=== PATIENT | female | born 1970 | race Caucasian/White ===

== ENCOUNTER 2025-02-03 07:44 | Outpatient (AMB) | payer BC, SELFPAY ==
--- OUTSIDE RECORDS SUMMARY | 2025-02-03 07:47 | XMS_ITS | Patient Health Record ---
Author Organization [facility] Address [address] [place] [address] Care Team Providers Care Ship Yard Electrical Person Name Role Phone HOA PITT Unavailable [phone] Allergies Allergen (clinical drug ingredient) Drug/Non Drug Allergy documented on EMR Reaction Allergy Type Onset Date Status Wellbutrin rash Drug Allergy Active Reason For Referral No Information Medications Medication SIG (Take, Route, Frequency, Duration) Notes Start Date End Date Status Levothyroxine Sodium 112 MCG Tablet 1 tablet in the morning on an empty stomach Orally Once a day Active Calcium 500 MG Tablet 1 tablet with meal s Orally Twice a day Active Biotin 92997 MCG Tablet 1 tablet Orally Once a day Active [place] 3 Active Omeprazole 20 MG Capsule Delayed Release 1 tablet 30 minutes before morning meal Orally Once a day Active Vitamin D 50 MCG (2000 UT) Tablet 1 tablet Orally Once a day Active Magnesium 400 MG Tablet as directed Orally Active Social History Tobacco Use: Social History Observation Description Date Details (start date - stop date) Former Smoker NA - NA Social History Drugs/Alcohol: Social Info Question Answer Notes Alcohol Screen (Audit-C) Did you have a drink containing alcohol in the past year? Yes How often did you have a drink containing alcohol in the past year? 2 to 4 times a month (2 points) Points 2 Interpretation Negative Tobacco Use: Social Info Question Answer Notes Tobacco Use/Smoking Are you a former smoker How long has it been since you last smoked? > 10 years Additional Details Category Social Info Options Details Drugs/Alcohol: Do you smoke marijuana? De nies Do you drink alcohol? 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 Problems Problem Type SNOMED Code ICD Code Onset Dates Problem Status W/U Status Risk Notes Problem Obesity (970706406) Other obesit y (E66.8) Active confirmed Problem Gastroesophageal reflux disease without esophagitis (030527296) Gastroesophageal reflux disease without esophagitis (K21.9) Active confirmed Problem Hypothyroidism (00839146) Hypothyroidism (acquired) (E03.9) Active confirmed Problem Body mass index 40+ - severely obese (884333235) BMI 45.0-49.9, adult (Z68.42) Active confirmed Problem Iron deficiency anemia secondary to inadequate dietary iron intake (417611192) Iron deficiency anemia secondary to inadequate dietary iron intake (D50.8) Active confirmed Plan Of Treatment No Information Insurance Providers Payer Name Payer Address Payer Phone Subscriber Number Group Number Insured Name Patient Relationship to Insured Coverage Start Date Coverage End Date [facility] [address] [place] [address] [id number] MEENAKSHI KENDRICK Self - patient is the insured 2 Medical (General) History Medical History History ICD Code high cholesterol thyroid disease Arthritis anemia weight gain/loss Surgical History Surgery Date(Month/Year) gastric bypass gallbladder removal herniated disc repair lab band adrenal gland removed
--- OUTSIDE RECORDS SUMMARY | 2025-02-03 07:47 | XMS_ITS ---
Author Name [facility] Organization Unknown Encounters Encounter Type Encounter Reason Primary Diagnosis Location Date Ambulatory no current diagnosis no current diagnosis [facility] 01/25/2025 Ambulatory [facility] 10/12/2024 Care Team Organization Name Specialty Phone Email Start Date End Da te [facility] 01/25/2025 [facility] 01/25/2025
--- OUTSIDE RECORDS SUMMARY | 2025-02-03 07:47 | XMS_ITS | Clinical Summary ---
Author Organization [facility] Address [address] [place] [address] Care Team Providers Care Crm Marketing Analyst Name Role Phone Marva Farrell MD Primary Care Prov ider Allergies Active Allergy Reactions Criticality Noted Date Comments Bupropion Rash Medium 01/08/2022 Medications Medication Sig Dispensed Refills Start Date End Date Status levothyroxine (SYNTHROID) tablet 112 mcg Take 1 tablet (112 mcg total) by mouth every morning on an empty stomach. 0 Active omeprazole (PriLOSEC) 20 MG capsule Take 1 capsule (20 mg total) by mouth daily. 0 Active Cholecalciferol (Vitamin D-3) 125 MCG (5000 UT) TABS Take by mouth daily. 0 Active Calcium Carbonate Antacid 1000 MG tablet Chew 1,000 mg by mouth 3 (three) times a day. 0 Active Biotin 65607 MCG TABS Take by mouth daily. 0 Active magnesium oxide 400 (240 Mg) MG TABS tablet Take 1 tablet (400 mg total) by mouth 2 (two) times a day. 0 Active Multiple Vitamin (MULTIVITAMIN ADULT PO) Take by mouth daily. 0 Active Tirzepatide (MOUNJARO SC) Inject under the skin. 0 Active Cyanocobalamin (Vitamin B 12) 500 MCG TABS Take 1,000 mg by mouth daily. 0 Active rivaroxaban (XARELTO) 10 MG tablet Take 1 tablet (10 mg total) by mouth daily. 45 tablet 0 12/08/2023 Active Active Problems Problem Noted Date Diagnosed Date Iron deficiency anemia 01/08/2022 Social History Tobacco Use Types Packs/Day Years Used Date Smoking Tobacco: Former Cigarettes 1 22 Q uit: 2010 Smokeless Tobacco: Never Tobacco Cessation:Counseling Given: Not Answered Alcohol Use Standard Drinks/Week Comments Yes 0 (1 standard drink = 0.6 oz pur e alcohol) 4-5 per year Sex and Gender Information Value Date Recorded Sex Assigned at Female 01/23/2022 10:18 AM EST Gender Identity Not on file Sexual Orientation Not on file Job Start Date Occupation Industry Not on file Not on file Not on file Last Filed Vital Signs Vital Sign Reading Time Taken Comments Blood Pressure 126/73 11/20/2023 3:13 PM EDT Pulse 78 11/20/2023 3:13 PM EDT Temperature 36.4 C (97.5 F) 11/20/2023 3:13 PM EDT Respiratory Rate 20 11/10/2023 8:11 AM EDT Oxygen Saturation 100% 11/20/2023 3:13 PM EDT Inhaled Oxygen Concentration - - Weight 131.6 kg (290 lb 3.2 oz) 10/10/2023 2:37 PM EDT Height 170.2 cm (5' 7 ) 10/10/2023 2:37 PM EDT Body Mass Index 45.45 10/10/2023 2:37 PM EDT Plan of Treatment Health Maintenance Due Date Last Done Comments Hepatitis C Screening 1971 Depression Screening 1983 BMI Counseling 12/19/1989 Preventative Health Evaluation 12/19/1989 Cervical Cancer Screening (Pap Smear) 12/19/1992 Colon Cancer Screening (Colonoscopy) 12/19/2016 DTap / Tdap / Td (2 - Td or Tdap) 07/01/2021 07/02/2011 Breast Cancer Screening (Mammogram) 12/19/2021 Shingrix-Zoster Vaccine (1 of 2) 12/19/2021 COVID-19 Vaccine ( season) 2024 12/13/2021, 03/22/2021, 04/16/2020, Additional history exists Influenza Vaccine (#1) 2024 3, 05/03/2019, 05/03/2019, Additional history exists Hepatitis B Vaccines Completed 03/04/2014, 10/15/2013, 09/15/2013 Pneumococcal Vaccine Aged Out No long er eligible based on patient's age to complete this topic RSV Ped < 20 months Aged Out No longe r eligible based on patient's age to complete this topic Care Teams Crm Marketing Analyst Relationship Specialty Start Date End Date Marva Farrell MD PCP - General Internal Medicine 10/22/21
[2025-02-03 07:49] VITALS: BMI 43.8
--- NOTE | 2025-02-03 07:49 | A.PHYSOV ---
Vital Signs 02/03/25 07:49 Height 5 ft 7 in Weight 280 lb BMI 43.8 Intake Visit Reasons: FOLLOW UP AFTER VIDAL SURGERY 11/25/24 Allergies bupropion (From WELLBUTRIN) Allergy (Severe, Verified 02/03/25 07:47) HIVES NSAIDS (Non-Steroidal Anti-Inflamma Allergy (Unknown, Verified 02/03/25 07:47) Unknown Pt states no known allergy to Allergy (Unknown, Uncoded 02/03/25 07:47) Unknown Wellbutrin Allergy (Unknown, Uncoded 02/03/25 07:47) Unknown HPI Comments Details: History of Present Illness The patient is a 54-year-old individual presenting with lower back pain and lumbar radiculitis. The patient underwent a right L3-L4 microdiscectomy on November 25, 2024, performed by Dr. Vidal, which initially reduced numbness in the right thigh. Physical therapy has been ongoing, helping to reduce the frequency and intensity of right-sided back pain, although exacerbations occur with weather changes. I reviewed records from neurosurgical office. I reviewed her primary care notes. I also reviewed most recent lumbosacral spine MRI dated 10/22/2024 which was done before her surgery. The patient has a history of pulmonary embolism and is currently on Xarelto, having switched from Eliquis for convenience of dosing. The patient has expressed interest in weight loss and is working with a menopause specialist in [place] for hormone management. The patient reports knee pain, particularly in the left knee, which has been previously managed with injections yielding good results. There is a family history of psoriatic arthritis, and the patient has noted joint changes and nail issues, raising concerns about potential psoriatic arthritis. Pain Description - Onset: Exacerbation of lower back pain with weather changes - Location: Bilateral lower back pain with radiation to both buttocks with going from sitting to standing position - Exacerbating factors: Weather changes - Relieving factors: Physical therapy Results - Imaging: Lumbar sacral spine MRI on October 22, 2024, showed right-sided disc extrusion at L3-L4 with impingement of the right L4 nerve root. FORMERLY [facility], [facility] Medical History (Updated 02/03/25 @ 08:15 by Hernán Heredia DO) Hip pain, bilateral Left knee DJD Surgical History S/P gastric sleeve procedure History of back surgery History of cholecystectomy Social History Household Members: Spouse Alcohol intake: current Alcohol intake frequency: holidays/special occasions only Current occupational status: employed Current occupation: fulltime Review of Systems Narrative Review of Systems - Musculoskeletal: Reports lower back pain, knee pain, and joint changes. - Neurological: Reports numbness in the right thigh, which has improved post-surgery. - Dermatological: Reports nail issues, raising concerns about potential psoriatic arthritis. Denies change in bowel bladder habits, denies fever or chills, denies uncontrolled depression or suicidal ideation. Physical Exam Exam Exam: Physical Exam Patient appears to be in no acute distress, appropriately conversant oriented. Gait was waddling without antalgia. Pain with palpation over left knee medial joint line. No effusion, no ligamentous instability. No severe pain with internal rotation of either hip. Dural tension signs were negative. Mild weakness of the right hip flexion. Bilateral patellar and Achilles reflexes were uniformly diminished, but symmetric. Lumbar extension was restricted. Tenderness with palpation or sacroiliac sulci, SI provocative maneuvers were negative. Vital Signs: BMI result Body Mass Index 43.8 Office Procedures AMB Knee Injection AMB Knee Injection Procedure Details: With patient in sitting position medial aspect of the left knee was prepped with Betadine. 1.5 inch 25 gauge hypodermic needle was introduced percutaneously and advanced into the joint. After negative aspiration for blood to the volume of 4 cc containing 40 mg of triamcinolone and 2% lidocaine was injected without resistance. Patient tolerated procedure very well without complications with excellent anesthetic response. Knee Injection - : Left All charges added?: Procedure code (CPT) selection complete Office Meds Kenalog 40 mg/mL suspension for injection Performing Provider: Hernán Heredia DO Performing Location: [facility] Administered by: Hernán Heredia DO on 02/03/25 09:00 Dose Route Admin Location Dispensed Lot Number Expiration Date NDC Manager Pest 40 mg intra-articular 1 mL [id number] [employer] Total Dispensed Waste 1 mL 0 % lidocaine (PF) 20 mg/mL (2 %) injection solution Performing Provider: Hernán Heredia DO Performing Location[facility] Administered by: Hernán Heredia DO on 02/03/25 09:00 Dose Route Admin Location Dispensed Lot Number Expiration Date NDC Manager Pest 40 mg intra-articular 2 mL [id number] Total Dispensed Waste 2 mL 0 % Assessment & Plan Assessment & Plan (1) Left knee DJD: Code(s): M17.12 - Unilateral primary osteoarthritis, left knee Category: Medical (2) Hip pain, bilateral: Code(s): M25.551 - Pain in right hip; M25.552 - Pain in left hip Category: Medical Plan Pain Management - Affect: The patient reports difficulty transitioning from sitting to standing, impacting daily activities. - Analgesia: The patient is on Xarelto for pulmonary embolism history, and has used knee injections for pain relief. - Adverse Effects: No specific adverse effects from pain management were discussed. - Activities of Daily Living: The patient experiences difficulty with activities such as getting into a car due to weakness and joint pain. - Aberrant Drug Related Behaviors: No aberrant behaviors reported. Plan Patient was informed and verbally consented to the use of an ambient scribe for clinic note documentation during this visit. 1. Lower Back Pain The patient will continue with physical therapy to manage lower back pain, which has shown improvement in pain frequency and intensity. Weather changes exacerbate the pain, and the patient is advised to monitor these triggers. 2. Lumbar Radiculitis The patient underwent a right L3-L4 microdiscectomy, which initially reduced numbness in the right thigh. Continued physical therapy is recommended to maintain improvements. 3. History Of Pulmonary Embolism The patient is on Xarelto for anticoagulation management, having switched from Eliquis for dosing convenience. 4. Menopausal Symptoms The patient is working with a menopause specialist for hormone management, focusing on symptom relief. 5. Knee Pain The patient has experienced relief from knee injections in the past and is considering further imaging to assess current status. 6. Patient is concerned about bilateral hip pain and relation of such to possibility of psoriatic arthritis Discussion Notes I discussed with the patient the continuation of physical therapy for managing lower back pain and lumbar radiculitis, emphasizing the importance of monitoring weather-related exacerbations. We reviewed the patient's anticoagulation therapy with Xarelto for pulmonary embolism history and the transition from Eliquis for convenience. The patient was advised to consider further imaging for knee pain and to follow up with a menopause specialist for hormone management. Bilateral hip x-rays will be requested as well. Proceed with intra-articular injection of the left knee. Risks and benefits of the procedure were discussed with the patient. Potential alternative measures were also discussed. Patient understands that the procedure is completely elective. Potential side effects associated with injectable medications were discussed. All questions were answered to the patient's satisfaction. Patient Instructions - Continue physical therapy as prescribed. - Monitor for weather-related pain exacerbations and adjust activities accordingly. - Follow up with menopause specialist for ongoing hormone management. - Schedule knee imaging as discussed and follow up with results. Orders: Orders XR hip BI w PEL1V Today M25.551 - Pain in right hip, M25.552 - Pain in left hip AMB Knee Injection Today M17.12 - Unilateral primary osteoarthritis, left knee XR knee LT 4V Today M17.12 - Unilateral primary osteoarthritis, left knee Coding Level of Care Code Est Pt Level 4 (08271) Complex EM visit Add On G2211 Diagnoses Left knee DJD M17.12 Hip pain, bilateral M25.551; M25.552 CPT Codes AMB Knee Injection - Hip/Bursa Injection - : Left ([id number])
== END 2025-02-03 08:14 | disposition home or self-care (01) ==
PROVIDERS: PCP Internal Medicine; Visit Provider Physical Medicine & Rehabilitation
DX: M17.12 Unilateral primary osteoarthritis, left knee (principal); M25.551 Pain in right hip; M25.552 Pain in left hip
CPT/HCPCS: 20610; 99214

== ENCOUNTER → 2025-02-03 07:44 | Outpatient (BNVA) | payer BC, SELFPAY | PROVIDERS: PCP Internal Medicine; Visit Provider Physical Medicine & Rehabilitation | DX: M17.12 Unilateral primary osteoarthritis, left knee (principal); M25.551 Pain in right hip; M25.552 Pain in left hip; Z98.890 Other specified postprocedural states; Z79.01 Long term (current) use of anticoagulants | CPT/HCPCS: 20610; J2003; J3301 ==